=== PATIENT | female | born 1985 ===

== ENCOUNTER → 2016-10-01 | Day surgery (SDC) | payer BC ==
[2016-10-01] VITALS (11 sets, daily range): BP systolic 94–116; BP diastolic 49–74
[~2016-10-01] VITALS: Ht 160 cm; Wt 49.0 kg
[~2016-10-01] MED LIST: Bupivacaine w/Epi 0.25% 30ml Vial INJ ONE; DiphenhydrAMINE 50mg/ml Inj IVP PRN; Hydrogen Peroxide 120ml Bottle TOPIC ONE; Hydromorphone 0.5mg/0.5ml inj IVP PRN; Ketorolac 30mg Inj IV PRN; LR 1000ml 1,000 ML IVLG SCH; Meperidine 25mg/ml Inj IV PRN; Metoclopramide 10mg/2ml Inj IVP PRN; Midazolam 2mg/2ml Inj IVP PRN; NKM; ProvayBlue 5mg/ml 10ml amp INJ ONE; Surgicel 4in x 8in TOPIC ONE; Tylenol #3 tab (300mg/30mg) ORAL PRN; fentaNYL 100 mcg/2 mL IV PRN
--- NOTE | 2016-10-01 07:18 | Pre-Procedure Note/Attestation ---
Pre-Procedure Note/Attestation Complete Prior to Procedure Procedure Narrative: excision anorectal mass, possible hemorrhoidectomy Indications for Procedure Pre-Operative Diagnosis: internal-external hemorrhoids Attestation I attest that I discussed the nature of the procedure; its benefits; risks and complications; and alternatives (and the risks and benefits of such alternatives ), prior to the procedure, with the patient (or the patient's legal sales solutions representative). I attest that, if there was a reasonable possibility of needing a blood transfusion, the patient (or the patient's legal sales solutions representative) was given the [facility] standardized written summary, pursuant to the Samir Gucci Blood Safety Act ([place] Health and Safety Code # 1645, as amended). I attest that I re-evaluated the patient just prior to the surgery and that there has been no change in the patient's H&P, except as documented below: NATHALY MARQUEZ Oct 01, 2016 07:18
--- NOTE | 2016-10-01 07:52 | Anethesia Preoperative Eval ---
Anesthesia Pre-op PMH/ROS General Date of Evaluation: Oct 01, 2016 Time of Evaluation: 06:50 Anesthesiologist: Jessica ASA Score: ASA 2 Mallampati Score Class I : Soft palate, uvula, fauces, pillars visible Class II: Soft palate, uvula, fauces visible Class III: Soft palate, base of uvula visible Class IV: Only hard plate visible Mallampati Classification: Class II Surgeon: Colette Diagnosis: Abdominal pain, Anal mass Surgical Procedure: EGD Rectal exam under anesthesia, hemorrhoidectomy Anesthesia History: none Family History: no anesthesia problems Allergies: Coded Allergies: No Known Allergies (Unverified , 09/30/16) Past Medical History Cardiovascular: Denies: CAD, HTN, [place], arrhythmia, other, valve dz Pulmonary: Denies: COPD, DEE, asthma, other Gastrointestinal/Genitourinary: Reports: GERD, other - hemorrhoids, Denies: CRI, ESRD Neurologic/Psychiatric: Denies: CVA, TIA, dementia, depression/anxiety, other Endocrine: Denies: DM, hypothyroidism, other, steroids HEENT: Denies: TOGIAK (L), TOGIAK (R), cataract (L), cataract (R), glaucoma, other Hematology/Immune: Reports: bleeding disorder - elevated PTT INR on preop lab work, Denies: DVT, anemia, other Musculoskeletal/Integumentary: Denies: DDD, DJD, OA, RA, edema, other PMH Narrative: as above PSxH Narrative: Hemorrhoidectomy Anesthesia Pre-op Phys. Exam Physician Exam Last Vital Signs Date Time Temp Pulse Resp B/P Pulse Ox O2 Delivery O2 Flow Rate FiO2 10/01/16 06:41 98.1 80 20 107/74 99 Room Air Constitutional: NAD Neurologic: CN 2-12 intact Cardiovascular: no M/R/G Respiratory: CTA Gastrointestinal: S/NT/ND Airway Exam Mallampati Score: Class II MO: full Neck: flexible ROM: full Teeth: intact Dentures: no lower, no upper Anesthesia Pre-op A/P Labs see chart Urine Test Test 10/01/16 06:20 Urine HCG, Qualitative Negative Studies Pre-op Studies: EKG - NSR Risk Assessment & Plan Assessment: ASA 2 Plan: MAC to GA with LMA Status Change Before Surgery: No Pre-Antibiotics Drug: Ancef 1gr. Given Within 1 Hr of Incision: Yes Time Given: 07:42 AJIT DIEZ M.D. Oct 01, 2016 07:52
--- NOTE | 2016-10-01 08:05 | Brief Operative Note ---
Immediate Post Operative Note Operative Note Pre-op Diagnosis: internal-external hemorrhoids, perianal mass-tag Procedure: Hemorrhoidectomy Post-op Diagnosis: same as pre-op Surgeon: hawk Anesthesiologist: maame Anesthesia: general Specimen: yes Complications: none Condition: stable Estimated Blood Loss: minimal Drains: none Implant(s) used?: No NATHALY MARQUEZ Oct 01, 2016 08:05
--- NOTE | 2016-10-01 08:39 | Endoscopy Procedure Note ---
Endoscopy Procedure Note Indication for Procedure: abd pain, dysphagia Procedures Performed: EGD Operative Findings/Diagnosis: nl Specimen: yes Pt Tolerated Procedure Well: Yes Estimated Blood Loss: none Anesthesiologist: see report Anesthesia: MAC Medication Given: see anesthesia record Implant(s) used?: No 50 yrs or older w/o bx or poly: Not Applicable SINTIA CASTRO Oct 01, 2016 08:39
--- NOTE | 2016-10-01 08:41 | Pre-Procedure Note/Attestation ---
Pre-Procedure Note/Attestation Complete Prior to Procedure Planned Procedure: not applicable Procedure Narrative: egd Indications for Procedure Pre-Operative Diagnosis: abd pain , dysphagia Attestation I attest that I discussed the nature of the procedure; its benefits; risks and complications; and alternatives (and the risks and benefits of such alternatives ), prior to the procedure, with the patient (or the patient's legal brewery representative). I attest that, if there was a reasonable possibility of needing a blood transfusion, the patient (or the patient's legal brewery representative) was given the [facility] standardized written summary, pursuant to the Samir Gucci Blood Safety Act ([place] Health and Safety Code # 1645, as amended). I attest that I re-evaluated the patient just prior to the surgery and that there has been no change in the patient's H&P, except as documented below: SINTIA CASTRO Oct 01, 2016 08:41
--- NOTE | 2016-10-01 08:42 | Brief Operative Note ---
Immediate Post Operative Note Operative Note Chief Complaint: anemia Pre-op Diagnosis: abd pain , dysphagia Procedure: egd Post-op Diagnosis: nl Surgeon: jarvis Anesthesiologist: see separate Anesthesia: moderate sedation Specimen: yes Complications: none Condition: stable Fluids: see anesthesia Estimated Blood Loss: none Implant(s) used?: No SINTIA CASTRO Oct 01, 2016 08:42
--- NOTE | 2016-10-01 10:36 | Immediate Post-Op Evaluation ---
Immediate Post-Op Evalulation Immediate Post-Op Evalulation Procedure: EGD with Bx. Hemorrhoidectomy Date of Evaluation: Oct 01, 2016 Time of Evaluation: 08:10 IV Fluids: 800 Blood Products: none Estimated Blood Loss: min Urinary Output: none Blood Pressure Systolic: 108 Blood Pressure Diastolic: 56 Pulse Rate: 72 Respiratory Rate: 22 O2 Sat by Pulse Oximetry: 98 Temperature (Fahrenheit): 97.8 Pain Score (1-10): 2 Nausea: No Vomiting: No Complications none Patient Status: reacts, patent, none Hydration Status: adequate AJIT DIEZ M.D. Oct 01, 2016 10:36
--- NOTE | 2016-10-01 10:38 | 48 Hour Post Anesthesia Eval ---
Post Anesthesia Evaluation Procedure: EGD with Bx. Hemorrhoidectomy Date of Evaluation: Oct 01, 2016 Time of Evaluation: 10:36 Blood Pressure Systolic: 108 0: 62 Pulse Rate: 64 Respiratory Rate: 18 Temperature (Fahrenheit): 97.5 O2 Sat by Pulse Oximetry: 99 Airway: patent Nausea: No Vomiting: No Pain Intensity: 1 Hydration Status: adequate Cardiopulmonary Status: stable Mental Status/LOC: patient returned to baseline Follow-up Care/Observations: n/a Post-Anesthesia Complications: none Follow-up care needed: ready to discharge AJIT DIEZ M.D. Oct 01, 2016 10:38
--- NOTE | 2016-10-01 11:38 | Operative Note - Dictated ---
DATE OF OPERATION: 10/01/2016 SURGEON: Cj Guadarrama M.D. SUPERVISOR PHOSPHATIC FERTILIZER: None. ANESTHESIOLOGIST: Chris Lopez M.D. ANESTHESIA: General endotracheal tube. PREOPERATIVE DIAGNOSES: 1. External perianal soft tissue mass-tag. 2. Internal hemorrhoids. POSTOPERATIVE DIAGNOSES: 1. External perianal soft tissue mass-tag. 2. Internal hemorrhoids. NAME OF OPERATION: Hemorrhoidectomy. FINDINGS AND INDICATIONS: The patient is a 31-year-old, [place] female, who has a [place] Since [place], she has had this bothersome painful perianal posterior mass, which inflames off and on and gives her significant discomfort. For that reason, the patient came to the office and was advised to go hemorrhoidectomy. The surgery indeed a large internal hemorrhoid was found on the right posterior area and some anterior and some posterior tag, which was also excised. The procedure was done uneventfully. DESCRIPTION OF PROCEDURE: With the patient lying in the lithotomy position on the operating table, under general anesthesia with the entire perianal region prepped and draped in usual sterile fashion with Betadine, and an external tag and going into the internal canal was grasped between Allis clamps, 0 chromic hemostatic sutures placed above and the ellipse of hemorrhoids removed and sent to pathology. The same was done on the right posterior hemorrhoidal column, which was grasped, and removed and then the defects were closed with 0 chromic in a locking suture to the anal verge in the interrupted 0 chromic sutures. The patient tolerated the procedure well. Marcaine 0.5% with epinephrine 20 mL was injected for long-acting local anesthetic and then a sterile dressing with Surgicel presently gauze for 4 x 4 and ABD pad dressing. She went to the recovery room in stable condition. Estimated blood loss was Less than 5 mL. Sponge and needle counts were correct. Cj Guadarrama M.D. DR: Adrian JOB#: [id number] CC:
--- NOTE | 2016-10-01 21:58 | Operative Note - Dictated ---
DATE OF OPERATION: 10/01/2016 PROCEDURE: Upper gastrointestinal endoscopy with biopsy. SURGEON: Srikanth Srinivasan M.D. ANESTHESIA: Please see the separate anesthesiologist notes for details. PRE-ENDOSCOPIC DIAGNOSIS: Abdominal pain. POST-ENDOSCOPIC DIAGNOSES: 1. Normal upper endoscopy. 2. Status post random biopsy from the duodenum, antrum, lower esophagus, and mid esophagus. DESCRIPTION OF PROCEDURE: The procedure, its risks, indications, alternatives, and possible complications were explained to the patient and informed consent was obtained. The patient was then sedated in the left lateral decubitus position. A diagnostic upper endoscope was introduced through the oropharynx and advanced to the duodenum. The endoscope was then gradually withdrawn and the mucosa was examined carefully. Examination of the upper gastric mucosa did not reveal any abnormalities. Biopsies were obtained as described above. The endoscope was removed and the patient was sent to recovery in good condition. COMPLICATIONS: None. RECOMMENDATIONS: 1. Follow up biopsy results. 2. Outpatient followup. Srikanth Srinivasan M.D. DR: MARILEE JOB#: [id number] CC: Srikanth Srinivasan M.D.; Fax#: [phone]
== END | disposition home or self-care (01) ==
LOC: GAS 06:06
DX: K64.4 Residual hemorrhoidal skin tags (principal); K64.8 Other hemorrhoids; D01.3 Carcinoma in situ of anus and anal canal; K29.50 Unspecified chronic gastritis without bleeding; R13.10 Dysphagia, unspecified; Z87.11 Personal history of peptic ulcer disease; K21.9 Gastro-esophageal reflux disease without esophagitis; Z80.0 Family history of malignant neoplasm of digestive organs
CPT/HCPCS: 81025; 94003; 94150